=== PATIENT | female | born 1980 | race Caucasian/White ===

== ENCOUNTER 2020-01-02 10:03 | Outpatient (CLI) | payer OTHER ==
--- NOTE | 2020-01-02 17:19 | MRI Report ---
PROCEDURE: Wrist LT W/O INDICATIONS: LEFT WRIST CYST TECHNIQUE: Noncontrast coronal proton density fast spin echo and T2 fast spin echo with fat saturation; coronal 3-D gradient echo, axial T1 spin echo and T2 fast spin echo with fat saturation, sagittal T1 spin ech o through the wrist. COMPARISON: None. FINDINGS: Image quality: Excellent. Bones and cartilage: The carpal bones are normally aligned. No bone marrow contusions or fractures. No evidence for avascular necrosis. Overlying cartilage surfaces appear normal. Carpal ligaments: The scapholunate and lunotriquetral ligaments appear intact. In the absence of in tra-articular contrast, the extrinsic carpal ligaments are not well identified. On sagittal images, the pisohamate ligament appears intact. Triangular fibrocartilage complex: The triangular fibrocartilage appears intact. The adjacent menis juancho homolog appears normal in the absence of intra-articular contrast. The extensor carpi ulnaris te ndon is normal in location and morphology. Tendons and soft tissues: The carpal tunnel structures appear normal, including the median nerve. T he ulnar nerve appears normal within Guyon?s canal. All six extensor tendon compartments demonstrate normal morphology, without pathologic tendon sheath fluid. Slightly lobulated T2 hyperintense and T1 hypointense structure within soft tissue over the radial and volar aspect of left wrist is seen and measures up to 9 x 5 x 8 mm in size with faint internal septations. This structure is more to the mid scaphoid waist and is superficial to the flexor carpi radialis tendon. IMPRESSION: 1. Findings suggestive of a 9 x 5 x 8 mm ganglion cyst over volar and radial aspect of left wrist at the level of scaphoid waist and is superficial to the left flexor carpi radialis tendon. 2. Triangular fibrocartilage complex is intact. Intrinsic and extrinsic wrist ligaments are intact. 3. Extensor and flexor tendons are intact. Reviewed by: Lucio Price MD on 01/02/2020 5:18 PM PDT Approved by: Lucio Price MD on 01/02/2020 5:18 PM PDT Station ID: [id number]
== END 2020-01-02 10:04 | disposition home or self-care (01) ==
LOC: DI 10:03
PROVIDERS: ATTEND Student in an Organized Health Care Education/Training Program
DX: M67.432 Ganglion, left wrist (principal)

== ENCOUNTER 2021-04-21 18:12 | Emergency (ER) | payer OTHER ==
[2021-04-21 18:38] LABS: BASOPHILS % (AUTO) 0.3 %; EOSINOPHILS # (AUTO) 0.1 10^3/uL (0.0-0.7); EOSINOPHILS % (AUTO) 0.9 %; HGB - HEMOGLOBIN 11.7 g/dL (12.0-16.0); LYMPHOCYTES # (AUTO) 2.7 10^3/uL (1.5-3.5); LYMPHOCYTES % (AUTO) 27.9 %; MEAN CORPUSCULAR HEMOGLOBIN 27.2 pg (27.0-31.0); MEAN CORPUSCULAR HGB CONC 32.5 g/dL (32.0-36.0); MEAN CORPUSCULAR VOLUME 83.7 fL (81.0-99.0); MEAN PLATELET VOLUME 9.4 fL (7.9-10.8); MONOCYTES # (AUTO) 0.9 10^3/uL (0.0-1.0); MONOCYTES % (AUTO) 8.9 %; NEUTROPHILS # (AUTO) 5.9 10^3/uL (1.5-6.6); NEUTROPHILS % (AUTO) 61.6 %; PLT - PLATELET COUNT 284 10^3/uL (130-450); RED CELL DISTRIBUTION WIDTH 14.4 % (12.0-15.0); WHITE BLOOD COUNT 9.6 x10^3/uL (4.8-10.8)
[2021-04-21 18:55] LABS: ALBUMIN 4.1 g/dL (3.2-5.5); ALBUMIN/GLOBULIN RATIO 1.2 (1.0-2.2); BILIRUBIN,TOTAL 0.8 mg/dL (0.2-1.0); CALCIUM 9.2 mg/dL (8.5-10.3); CREATININE 0.8 mg/dL (0.4-1.0); POTASSIUM 3.4 mmol/L (3.5-5.0); TOTAL PROTEIN 7.5 g/dL (6.7-8.2)
[2021-04-21] MEDS ORDERED: oxyCODONE 5 MG TABLET PO STA (18:56)
--- NOTE | 2021-04-21 19:27 | ED Physician Documentation ---
History of Present Illness - Stated complaint Stated Complaint: BLEEDING/CRAMPING - Chief complaint Chief Complaint: Abd Pain - History obtained from History obtained from: Patient - History of Present Illness Timing: Today Pain level max: 10 Pain level now: 10 - Additonal information Additional information: Patient is a 40-year-old female who presents to the emergency department with vaginal bleeding and cramping today. She believes she is about 7 weeks . The bleeding has increased throughout the day and the cramping has increased as well. She has 1 prior . She had a hCG drawn earlier today. It was around 500. She states the bleeding has increased tonight. Nothing makes it better or worse Review of Systems Ten Systems: 10 systems reviewed and negative Constitutional: denies: Fever, Chills Throat: denies: Sore throat Cardiac: denies: Chest pain / pressure, Palpitations Respiratory: denies: Dyspnea, Cough GI: denies: Vomiting, Diarrhea : denies: Dysuria, Frequency, Hesitancy Skin: denies: Rash Musculoskeletal: denies: Neck pain, Back pain Neurologic: denies: Headache PD PAST MEDICAL HISTORY - Past Medical History Past Medical History: No - Past Surgical History Past Surgical History: No - Present Medications Home Medications: Ambulatory Orders Medication Instructions Recorded Confirmed HYDROcod/ACETAM 5/325 [[place] 5/325] 1 - 2 ea PO Q6H PRN #14 tablet 04/21/21 - Allergies Allergies/Adverse Reactions: Allergies Allergy/AdvReac Type Severity Reaction Status Date / Time No Known Drug Allergies Allergy Verified 04/21/21 18:17 - Living Situation Living Situation: reports: With family Living Arrangement: reports: At home - Social History Does the pt have substance abuse?: No - Family History Family history: reports: Non contributory PD ED PE NORMAL - Vitals Vital signs reviewed: Yes - General General: Alert and oriented X 3, No acute distress - HEENT HEENT: PERRL, Moist mucous membranes - Neck Neck: Supple, no meningeal sign - Cardiac Cardiac: RRR, Strong equal pulses - Respiratory Respiratory: No respiratory distress, Clear bilaterally - Abdomen Abdomen: Soft, Non tender, Non distended - Back Back: No CVA TTP, No spinal TTP - Derm Derm: Warm and dry - Extremities Extremities: No edema - Neuro Neuro: Alert and oriented X 3 Results - Vitals Vitals: Vital Signs - 24 hr 04/21/21 04/21/21 18:17 20:18 Temperature 36.5 C Heart Rate 73 79 Respiratory 16 16 Rate Blood Pressure 150/90 H 126/95 H O2 Saturation 100 100 Oxygen O2 Source Room air - Labs Labs: Laboratory Tests 04/21/21 04/21/21 04/21/21 18:31 18:31 18:31 WBC 9.6 RBC 4.30 Hgb 11.7 L Hct 36.0 L MCV 83.7 MCH 27.2 MCHC 32.5 RDW 14.4 Plt Count 284 MPV 9.4 Neut # (Auto) 5.9 Lymph # (Auto) 2.7 [place] # (Auto) 0.9 Eos # (Auto) 0.1 Baso # (Auto) 0.0 Absolute Nucleated RBC 0.00 Nucleated RBC % 0.0 Sodium 134 L Potassium 3.4 L Chloride 100 L Carbon Dioxide 25 Anion Gap 9.0 BUN 8 Creatinine 0.8 Estimated GFR (MDRD) 80 L Glucose 110 H Calcium 9.2 Total Bilirubin 0.8 AST 16 ALT 13 Alkaline Phosphatase 48 Total Protein 7.5 Albumin 4.1 Globulin 3.4 Albumin/Globulin Ratio 1.2 Lipase 28 HCG, Quant 360.07 - Rads (name of study) OB US Radiology: Final report received, EMP read contemporaneously, See rad report PD MEDICAL DECISION MAKING - ED course Complexity details: reviewed results, re-evaluated patient, considered differential, d/w patient ED course: 40-year-old female appears to be having a miscarriage. Her hCG has decreased from 500 earlier today down to around 350 here. Ultrasound does not show any evidence of . Pain well controlled. Bleeding improved. We will have her follow-up with OB on Monday for repeat hCG and to continue to trend her hCG to 0. Patient counseled regarding signs and symptoms for which I believe and urgent re-evaluation would be necessary. Patient with good understanding of and agreement to plan and is comfortable going home at this time This document was made in part using voice recognition software. While efforts are made to proofread this document, sound alike and grammatical errors may occur. Although this likely is a miscarriage, ectopic precautions were given at bedside No findings of intrauterine or ectopic . Departure - Departure Disposition: 01 Home, Self Care Clinical Impression: Miscarriage Condition: Good Instructions: ED Miscarriage Completed Follow-Up: HEENA BIRMINGHAM MD [Primary Care Provider] - [facility] [Provider Group] Prescriptions: HYDROcod/ACETAM 5/325 [[place] 5/325] 1 - 2 ea PO Q6H PRN #14 tablet PRN Reason: Pain Comments: Please follow-up with OB for further care. You need to have your hCG rechecked in 2-3 days to ensure it is continuing to downtrend. You can call the office tomorrow to have a blood draw on Monday. Your prescription was sent to [facility] in [place]. You can use the medication as needed for pain. I am prescribing a short course of narcotic pain medication for you. These are potentially dangerous and addictive medications that should be used carefully. These medications may constipate you. Take an [id number] stool softener (docusate) twice daily with plenty of water while taking these medications. If you go 24 hours without a bowel movement, take [id number] miralax, per package instructions. Do not drink or drive while taking these medications. If you received narcotic or sedating medications while in the emergency department, do not drive for 24 hours. Store this medication in a safe, secure place and out of reach of children. It is a violation of federal law to give or sell this medication to another person or to use in a manner other than prescribed. The ED will not refill narcotic prescriptions, including prescriptions lost or stolen. To dispose of unwanted medications: 1. [facility] at [address] in [place] has a medication drop box. They accept prescription medications (in pill form) Monday through Monday 9:00 a.m. to 5:00 p.m. 2. The [facility] [employer] accepts prescription medications (in pill form only) for disposal year round. Call for more information. 3. Contact the [facility] for the next [facility] sponsored prescription drug collection event. , [phone], or [phone]; Discharge Date/Time: 04/21/21 20:18
--- NOTE | 2021-04-21 19:50 | Ultrasound Report ---
PROCEDURE: OB First Trimester w/TV INDICATIONS: Vaginal bleeding, 7 weeks TECHNIQUE: Real-time scanning was performed of the fetus and maternal pelvic organs, with image documentation. Endovaginal scanning was also performed to better visualize the fetus and maternal ovaries. COMPARISON: None FINDINGS: No gestational sac in the uterine fundus. No other findings of intrauterine . Both ovaries a re unremarkable. IMPRESSION: No findings of intrauterine or ectopic . Reviewed by: Easton Quintana MD on 04/21/2021 7:49 PM PST Approved by: Easton Quintana MD on 04/21/2021 7:49 PM PST Station ID: [id number]
[2021-04-21 20:19] VITALS: BP 126/95
== END 2021-04-21 20:18 | disposition home or self-care (01) ==
LOC: ED 18:12
DX: O03.9 Complete or unspecified spontaneous abortion without complication (principal)
CPT/HCPCS: 36415; 76801; 76817; 80053; 83690; 84702; 85025; 99284; A9270; 86900; 86901

== ENCOUNTER 2021-04-23 11:07 | Outpatient (CLI) | payer OTHER ==
[2021-04-23 18:35] LABS: BASOPHILS % (AUTO) 0.4 %; EOSINOPHILS # (AUTO) 0.2 10^3/uL (0.0-0.7); HCT - HEMATOCRIT 36.4 % (37.0-47.0); HGB - HEMOGLOBIN 11.5 g/dL (12.0-16.0); LYMPHOCYTES # (AUTO) 1.8 10^3/uL (1.5-3.5); LYMPHOCYTES % (AUTO) 21.8 %; MEAN CORPUSCULAR HEMOGLOBIN 26.9 pg (27.0-31.0); MEAN CORPUSCULAR HGB CONC 31.6 g/dL (32.0-36.0); MEAN CORPUSCULAR VOLUME 85.2 fL (81.0-99.0); MEAN PLATELET VOLUME 10.1 fL (7.9-10.8); MONOCYTES # (AUTO) 0.5 10^3/uL (0.0-1.0); MONOCYTES % (AUTO) 6.6 %; NEUTROPHILS # (AUTO) 5.5 10^3/uL (1.5-6.6); NEUTROPHILS % (AUTO) 68.7 %; PLT - PLATELET COUNT 285 10^3/uL (130-450); RED BLOOD COUNT 4.27 10^6/uL (4.20-5.40); RED CELL DISTRIBUTION WIDTH 14.8 % (12.0-15.0)
[2021-04-23 18:43] LABS: BILIRUBIN,URINE NEGATIVE (NEGATIVE); GLUCOSE, URINE (UA) NEGATIVE (NEGATIVE); KETONES,URINE (UA) NEGATIVE (NEGATIVE); LEUKOCYTE ESTERASE, URINE NEGATIVE (NEGATIVE); NITRITE,URINE NEGATIVE (NEGATIVE); OCCULT BLOOD,URINE LARGE (NEGATIVE); PROTEIN,URINE NEGATIVE (NEGATIVE); UROBILINOGEN,URINE 0.2 (NORMAL) E.U./dL (NORMAL)
[2021-04-23 18:53] LABS: CLARITY,URINE HAZY (CLEAR)
[2021-04-23 20:07] LABS: WBC,URINE 0-3 /HPF (0-5)
[2021-04-23 20:08] LABS: BACTERIA,URINE None Seen /HPF (None Seen); SQUAMOUS EPITHELIAL CELL,UR MOD Squamous (<= Few)
[2021-04-24 10:05] LABS: HEPATITIS C ANTIBODY NON-REACTIVE (NON-REACTIVE)
[2021-04-24 13:57] LABS: HEPATITIS B SURFACE ANTIGEN NON-REACTIVE (NON-REACTIVE)
[2021-04-26 15:46] LABS: HIV AG/AB 4TH GEN NON-REACTIVE (NON-REACTIVE)
== END 2021-04-23 11:08 | disposition home or self-care (01) ==
LOC: LAB.N 11:07
PROVIDERS: ATTEND Obstetrics & Gynecology
DX: Z36.89 Encounter for other specified antenatal screening (principal)
CPT/HCPCS: 36415; 81001; 85025; 86592; 86762; 86787; 86803; 86850; 86900; 86901; 87086; 87340; 87389

== ENCOUNTER 2021-04-26 15:10 | Outpatient (CLI) | payer OTHER | END 2021-04-26 15:11 | disposition home or self-care (01) | LOC: LAB.N 15:10 | PROVIDERS: ATTEND Obstetrics & Gynecology | DX: N93.9 Abnormal uterine and vaginal bleeding, unspecified (principal) | CPT/HCPCS: 36415; 84702 ==

== ENCOUNTER 2021-05-03 13:05 | Outpatient (CLI) | payer OTHER | END 2021-05-03 13:06 | disposition home or self-care (01) | LOC: LAB.N 13:05 | PROVIDERS: ATTEND Obstetrics & Gynecology | DX: O03.9 Complete or unspecified spontaneous abortion without complication (principal) | CPT/HCPCS: 36415; 84702 ==

== ENCOUNTER 2021-05-12 12:08 | Outpatient (CLI) | payer OTHER ==
[2021-05-12 18:14] LABS: THYROID STIMULATING HORMONE 1.26 uIU/mL (0.34-5.60)
[2021-05-12 20:26] LABS: ESTIMATED AVERAGE GLUCOSE 114 mg/dL (70-100); HEMOGLOBIN A1c% 5.6 % (4.27-6.07)
== END 2021-05-12 12:09 | disposition home or self-care (01) ==
LOC: LAB.N 12:08
PROVIDERS: ATTEND Obstetrics & Gynecology
DX: Z31.69 Encounter for other general counseling and advice on procreation (principal)
CPT/HCPCS: 36415; 81220; 81329; 81599; 83036; 84443